=== PATIENT | male | born 1990 | race Caucasian/White ===

== ENCOUNTER 2021-08-22 15:33 | Emergency (ER) | payer BC, SELFPAY ==
[2021-08-22 17:00] LABS: #Lymphocytes 1.6 thou/uL (1.20-3.40); #Monocytes 0.6 thou/uL (0.11-0.59); #Neutrophils 6.9 thou/uL (1.40-6.50); %Basophils 0.2 % (0.0-1.0); %Eosinophils 0.4 % (0.0-10.0); %Lymphocytes 17.6 % (21.0-51.0); %Monocytes 6.7 % (0.0-10.0); Hemoglobin 16.9 g/dL (14.0-18.0); Mean Corpuscular HGB CONC 33.3 g/dL (32.0-36.0); Mean Corpuscular Hemoglobin 30.2 pg (27.0-31.0); Mean Corpuscular Volume 90.6 fL (78.0-98.0); Mean Platelet Volume 7.9 fL (7.4-10.4); Platelet Count 268 thou/uL (130-400); RBC Distribution Width 11.5 % (11.5-14.5); Red Blood Cell (RBC) Count 5.58 mill/uL (4.70-6.10); White Blood Cell (WBC) Count 9.2 thou/uL (4.8-10.8)
[2021-08-22 17:12] LABS: Magnesium 2.2 mg/dL (1.6-2.6)
[2021-08-22 19:04] LABS: ALT (SGPT) 20 U/L (8-55); AST (SGOT) 17 U/L (5-34); Alkaline Phosphatase 55 U/L (40-110); Anion Gap 18 mmol/L (10-20); BUN (Urea Nitrogen) 10 mg/dL (8.9-20.6); Bilirubin, Total 0.9 mg/dL (0.2-1.2); Calc. Creatinine Clearance 0 mL/min (70-130); Calcium 9.4 mg/dL (7.8-10.44); Carbon Dioxide 22 mmol/L (22-29); Chloride 104 mmol/L (98-107); Globulin 3.3 g/dL (2.4-3.5); Glucose 106 mg/dL (70-105); Potassium 3.6 mmol/L (3.5-5.1); Protein, Total 8.3 g/dL (6.0-8.3); Sodium 140 mmol/L (136-145)
== END 2021-08-22 20:13 | disposition home or self-care (01) ==
LOC: ERS 15:33
DX: R07.89 Other chest pain (principal); F43.0 Acute stress reaction; Z87.891 Personal history of nicotine dependence
CPT/HCPCS: 36415; 80053; 83735; 84443; 84484; 85025; 93005